=== PATIENT | male | born 1980 | race Caucasian/White ===

== ENCOUNTER → 2021-01-23 | Outpatient (CLI) | payer OTHER ==
[2021-01-23 11:11] LABS: FOLLICLE STIMULATING HORMONE 3.2 mIU/mL (1.4-18.1); LUTEINIZING HORMONE 3.1 mIU/mL (1.5-9.3); PROLACTIN 6.6 NG/ML (2.1-17.7)
[2021-01-26 15:08] LABS: TESTOSTERONE %FREE+WEAKLY BOUN 29.9 % (9.0-46.0); TESTOSTERONE FREE+WEAKLY BOUND 116.9 ng/dL (40.0-250.0); TESTOSTERONE TOTAL 391 ng/dL (264-916)
== END ==
LOC: M WUC 08:23
PROVIDERS: ATTEND Nurse Practitioner Family
DX: E29.1 Testicular hypofunction (principal)

== ENCOUNTER → 2021-01-31 | Outpatient (CLI) | payer OTHER | LOC: M WUC 08:03 | PROVIDERS: ATTEND Nurse Practitioner Family | DX: E29.1 Testicular hypofunction (principal) ==

== ENCOUNTER 2021-02-22 11:15 | Day surgery (SDC) | payer OTHER ==
[~2021-02-22] VITALS: Ht 170.2 cm; Wt 87.3 kg
[~2021-02-22 11:15] MED LIST: OMEP-173 PO
[2021-02-22] MEDS ORDERED: LIDOCAINE 2% 100MG/5ML SDV (FOR ANES.) As Ordered ONE (12:32)
[2021-02-22] MEDS ORDERED: fentaNYL 100 MCG/2 ML INJECTION As Ordered ONE (12:33)
[2021-02-22] MEDS ORDERED: propofoL 200 MG/20 ML VIAL As Ordered ONE ×4 (12:33→14:08)
[2021-02-22 14:47] VITALS: BP 123/81
== END 2021-02-22 14:51 | disposition home or self-care (01) ==
LOC: M OPP 11:15
PROVIDERS: ATTEND Surgery
DX: K21.00 Gastro-esophageal reflux disease with esophagitis, without bleeding (principal); K44.9 Diaphragmatic hernia without obstruction or gangrene; K92.0 Hematemesis; R12 Heartburn; K31.89 Other diseases of stomach and duodenum; R06.83 Snoring; Z79.899 Other long term (current) drug therapy
CPT/HCPCS: 43239; 88305; J3010